=== PATIENT | female | born 1960 | race Caucasian/White ===

== ENCOUNTER 2016-11-24 19:18 | Emergency (ER) | payer OTHER ==
[~2016-11-24 19:18] MED LIST: ALBUTEROL IN200 PUFF INH; AMITRIPTYLINE150 MG PO; BUTORPHANO10 MG/1 ML; CHILDRENS CHEWA81 MG PO; ELIQUIS5 MG PO; ENOXAPARIN40 MG/0.4 INJ; FUROSEMIDE40 MG PO; HCTZ25 MG PO; HYDROCODON-ACE1 EAC6 PO; LEVOFLOXACIN500 MG PO; LEVOFLOXACIN750 MG PO; LEVOTHYROXINE100 MCG PO; LEVOTHYROXINE88 MCG PO; LISINOPRIL10 MG PO; MEDROL4 M1 PO; NICODERM 14MG PA1 EA TD; NICOTINE GUM2 MG MT; NITROGLYCERIN0.4 MG SL; PEPCID20 MG PO; PROTONIX40 MG PO; STADOL2 MG/ML; SYNTHROID88 MCG PO; TIZANIDINE HCL4 MG PO; TRAVATAN Z2.5 ML OP; XANAX0.5 MG PO
== END 2016-11-24 21:17 | disposition home or self-care (01) ==
LOC: ER 19:18
DX: G43.909 Migraine, unspecified, not intractable, without status migrainosus (principal); Z85.850 Personal history of malignant neoplasm of thyroid; Z86.718 Personal history of other venous thrombosis and embolism; Z90.710 Acquired absence of both cervix and uterus; E89.0 Postprocedural hypothyroidism; F17.290 Nicotine dependence, other tobacco product, uncomplicated; Z88.8 Allergy status to other drugs, medicaments and biological substances; Z88.6 Allergy status to analgesic agent; Z79.02 Long term (current) use of antithrombotics/antiplatelets; Z79.899 Other long term (current) drug therapy
CPT/HCPCS: 96372; 99282-25

== ENCOUNTER 2016-12-06 15:44 | Emergency (ER) | payer OTHER | END 2016-12-06 15:55 | disposition home or self-care (01) | LOC: ER 15:44 | DX: G43.909 Migraine, unspecified, not intractable, without status migrainosus (principal); E07.9 Disorder of thyroid, unspecified; Z88.8 Allergy status to other drugs, medicaments and biological substances; Z88.6 Allergy status to analgesic agent; Z79.899 Other long term (current) drug therapy; Z79.02 Long term (current) use of antithrombotics/antiplatelets | CPT/HCPCS: 99282 ==

== ENCOUNTER 2016-12-24 18:16 | Emergency (ER) | payer OTHER | END 2016-12-25 00:15 | disposition home or self-care (01) | LOC: ER 18:16 | DX: G43.909 Migraine, unspecified, not intractable, without status migrainosus (principal); M54.9 Dorsalgia, unspecified; Z86.711 Personal history of pulmonary embolism; Z85.850 Personal history of malignant neoplasm of thyroid | CPT/HCPCS: 96372; 99283-25 ==

== ENCOUNTER 2016-12-30 20:10 | Emergency (ER) | payer OTHER | END 2016-12-30 22:54 | disposition home or self-care (01) | LOC: ER 20:10 | DX: G43.909 Migraine, unspecified, not intractable, without status migrainosus (principal); Z79.899 Other long term (current) drug therapy; Z79.02 Long term (current) use of antithrombotics/antiplatelets | CPT/HCPCS: 96374; 96375; 99070; 99282-25; J2765; J7040 ==

== ENCOUNTER 2017-02-15 16:34 | Emergency (ER) | payer OTHER | END 2017-02-15 16:54 | disposition home or self-care (01) | LOC: ER 16:34 | DX: I82.890 Acute embolism and thrombosis of other specified veins (principal); G89.29 Other chronic pain; M54.2 Cervicalgia; E03.9 Hypothyroidism, unspecified; F41.9 Anxiety disorder, unspecified; Z79.891 Long term (current) use of opiate analgesic; Z79.899 Other long term (current) drug therapy | CPT/HCPCS: 99282 ==